=== PATIENT | female | born 1935 | race Caucasian/White ===

== ENCOUNTER → 2019-11-22 | Outpatient (CLI) | payer MEDICARE, BC ==
[2019-11-22 16:43] LABS: FOLATE LEVEL 10.2 ng/mL (3.1-17.5)
== END | disposition home or self-care (01) ==
LOC: CFH 14:19
PROVIDERS: ATTEND Internal Medicine
DX: F03.91 Unspecified dementia, unspecified severity, with behavioral disturbance (principal)
CPT/HCPCS: 36415; 82607; 82746; 86480